=== PATIENT | male | born 1960 | race Caucasian/White ===

== ENCOUNTER 2018-05-29 08:38 | Inpatient (IN) ==
[2018-05-29] MEDS ORDERED: Chlorhexidine Gluconate 2% 1 Pack (2 Cloths) TOPICAL SCH (09:30)
[2018-05-29] MEDS ORDERED: Metoprolol Tartrate 25 MG Tablet PO SCH (09:30)
[2018-05-29] MEDS ORDERED: Chlorhexidine 4% Topical 120 APPLIC/120 ML Bottle TOPICAL SCH (09:45)
[2018-05-29] MEDS ORDERED: Sodium Chlor 0.9% Inj 40 ML, Bupivacaine Liposo PF 1.3% Inj 20 ML P-ARTICULR SCH ×2 (10:00)
[2018-05-29] MEDS ORDERED: SODIUM CHLOR 0.9% IV.SIG SCH (10:00)
[2018-05-29] MEDS ORDERED: TRANEXAMIC ACID IV.SIG SCH (10:00)
[2018-05-29] MEDS ORDERED: Sodium Chlor 0.9% Inj 500 ML IV.SIG SCH (10:00)
[2018-05-29] MEDS ORDERED: Vancomycin Inj 1,000 MG in Sodium Chlor 0.9% Inj 250 ML IV.SIG SCH (10:00)
[2018-05-29] MEDS ORDERED: Thrombin Topical 20,000 UNIT Spray Kit TOPICAL ONE (10:25)
[2018-05-29] MEDS ORDERED: Gelatin Size 100 Topical Foam ONE (10:26)
[2018-05-29] MEDS ORDERED: fentaNYL Citrate Inj 250 MCG/5 ML Ampul ONE (10:41)
[2018-05-29] MEDS ORDERED: Lidocaine PF 1% Inj 5 ML Syringe INFILTRATN ONE (12:00)
[2018-05-29] MEDS ORDERED: Bupivacaine/Epinephrine Inj 0.25% 50 ML Vial ONE (12:41)
[2018-05-29] MEDS ORDERED: Post-op Orders (for Pharmacy) OTHER STA (14:03)
[2018-05-29] MEDS ORDERED: oxyCODONE/Acetaminophen 10/325 Tablet PO PRN (14:03)
[2018-05-29] MEDS ORDERED: Naloxone Inj 0.4 MG/ML Vial IV.PUSH PRN (14:03)
[2018-05-29] MEDS ORDERED: Bisacodyl 10 MG Supp RECTAL PRN (14:03)
--- NOTE | 2018-05-29 14:26 | P.OP ---
- Preoperative Diagnosis (1) Metallosis Preoperative Diagnosis: Malfunctioning right total hip replacement arthroplasty. Status post [id number] total hip replacement. Postoperative Diagnosis: Same Date of procedure: 05/29/18 Procedure: Revision right total hip replacement Anesthesia: ARPAN Surgeon: Jethro Kam MD Hog Driver: RISHI David Operation and Findings: EBL: 200 cc cc INDICATION: This patient is a 57-year-old male who in 2007 came to the fibular strut grafting of his left hip for avascular necrosis. He came to metal on metal total hip replacement of the right hip [place] in 2008. Over period of 6-12 months the patient has noted symptoms regarding his right hip. He treated with 1 of my partners. Investigative studies show concerns for cobalt-chromium elevated markers. 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 He has consented for revision right total hip replacement. NOTE: Rachel David PA-C was present for the entire surgical procedure as my first line production supervisor. In my medical opinion her skill and care was necessary for the proper management of this patient. COMPONENTS: COMPANY: [employer] CUP: BHR, 54 mm outside diameter, 48 mm inside diameter. STEM: Anthology size 10, standard offset, 12/14 taper HEAD: 28 mm, -3, Oxinium ALTRX: Dual mobility, 28 mm head size with 48 mm outside diameter. PROCEDURE: This patient was brought to the operating room and anesthetized in the supine position and positioned on the routine table in the clean air suite. The patient was then rolled to a right side up lateral position and held with a Biomet hip positioner. The hip and leg was scrubbed with alcohol followed by Hibiclens followed by chloro prep and draped sterilely. A timeout was done and antibiotics were given within a routine time window. The previous incision was utilized. The previous incision was excised. The iliotibial band was opened in line with the incision. This was scarred down significantly and this was lifted and elevated. The sciatic nerve was palpated to be deep and away from surgical dissection and away from the retractor. The Charnley retractor was positioned. There was a large fluid-filled area that started in the posterior aspect of the hip and extended around the greater trochanter. This cyst/pseudocapsule was surgically dissected free from the surrounding tissues. The fluid was sent for culture and a tissue culture was sent for a culture. All of the cyst was removed. We entered into the hip joint. We found fibrinous debris and dark staining material of the lining of the pseudocapsule and capsule. This was all excised. The hip was dislocated posteriorly. The inside diameter of the acetabulum was 48 mm. The head was removed from the femoral stem. The stem was inspected. There was a minimal amount of dark debris at the junction between the head liner and the top of the stem. There was minimal wearing of the stem trunnion. We checked carefully and stressed the stem in multiple ways and could not see any evidence of loosening of the femoral stem. Position was approximately 15-20 of anteversion. The stem was felt to be very satisfactory. The entire capsule was excised. The stem was positioned anterior to the cup and the trunnion was protected. Exposure was excellent. The capsule and pseudocapsule around the acetabular component was excised. The cup was inspected. I could not see any significant wear indicating that it was not suitable for revision. The cup position appear to be very satisfactory and about approximately 10-15 of forward flexion and 40-45 of abduction. We did a trial with a dual mobility plastic liner and a 28 mm -3 head. It appeared that the leg length was similar to what it was preoperatively with exception of a few millimeters longer. No shorter construct was possible. The patient was stable at 90 flexion to 65 of internal rotation. With full external rotation in extension and could not be subluxed anteriorly. We again checked carefully. All metallic debris material have been excised. The final Oxinium head was placed inside the dual mobility plastic. The construct was impacted and was very secure. The hip was reduced. Stability was as previously noted. The posterior capsule and external rotators were repaired through bone with interrupted #2 Tycron sutures. The piriformis muscle was repaired with the same. The iliotibial band with interrupted #1 Vicryl sutures. Subcutaneous tissue was approximated with 2-0 Vicryl suture and skin with running intradermal 3-0 Vicryl followed by Steri-Strips and benzoin. A sterile dressing was applied.. The sponge count needle counts and instrument counts were all correct. The patient was awakened and taken to the recovery room in satisfactory condition FINDINGS: There was a large fluid-filled pseudocapsule and cyst which was stained dark along the edges and filled with dark colored fluid. This is all excised. Cultures were sent. This had the appearance of metal debris within a large fluid-filled pseudocapsule
--- NOTE | 2018-05-29 14:31 | P.DCO ---
- Physical Therapy Physical Therapy: Gait training, Other (3 times per week for 2 weeks) Hip: Total hip, Protocol: Right, Posterior hip precautions, Abduction pillow while in bed - Nursing RN: 3 days/week x 2 weeks Nursing: Other - Certification Need for Home Health services: I have seen patient Lawrence Georges on 05/29/18. My clinical findings support the need for the requested home health care services because: Need for Home Health Services: Limited ability to care for self, High risk of falls Homebound Certification: I certify that my clinical findings support that this patient is homebound because: Homebound Certification: Post-op weakness
[2018-05-29] MEDS ORDERED: *Meperidine Inj 25 MG/ML Vial PERIprocedural Use ONLY ONE (14:34)
[2018-05-29] MEDS ORDERED: *morphine SULFATE 10 MG/ML PERIprocedure ONLY ONE ×2 (14:38→14:46)
[2018-05-29] MEDS ORDERED: HYDROmorphone PF Inj 2 MG/ML Vial ONE (14:54)
--- NOTE | 2018-05-29 15:16 | XR ---
EXAM DATE: 05/29/2018 3:08 PM EDT AGE/SEX: 57 years / Male INDICATIONS: Post op right hip surgery. CLINICAL DATA: This is the patient's initial encounter. Patient reports that signs and symptoms have been present for 1 day and indicates a pain score of 10/10. MEDICAL/SURGICAL HISTORY: None. None. COMPARISON: POI, MR HIP W/O CONTRAST, RIGHT, 03/23/2018. . FINDINGS: Right hip arthroplasty. Degenerative changes at L4-5 and L5-S1. Mild narrowing of the left hip. No fr acture or dislocation. CONCLUSION: Postop right hip arthroplasty. Electronically signed by: Vimal Hunter MD 05/29/2018 3:15 PM EDT
[2018-05-29] MEDS ORDERED: oxyCODONE HCL 80 MG Controlled Release Tablet PO ONE (15:21)
[2018-05-29] MEDS: oxyCODONE/Acetaminophen 10/325 Tablet PO PRN ×2 (15:32→21:31)
[2018-05-29] MEDS: Baclofen 10 MG Tablet PO SCH (18:30)
[2018-05-29] MEDS: Gabapentin 400 MG Capsule PO SCH (18:31)
[2018-05-29] MEDS: oxyCODONE HCL 80 MG Controlled Release Tablet PO SCH (18:31)
[2018-05-29] MEDS: Morphine Inj 4 MG/ML Vial IV.PUSH PRN (19:56)
[2018-05-29] MEDS: ALPRAZolam 0.5 MG Tablet PO PRN (19:58)
[2018-05-29] MEDS: Senna/Docusate Sodium 8.6/50 MG Tablet PO SCH (21:32)
[2018-05-29] MEDS: Multivitamin/Minerals Therapeutic Tablet PO SCH (21:32)
[2018-05-29] MEDS: Temazepam 15 MG Capsule PO PRN (21:41)
[2018-05-30] MEDS: Morphine Inj 4 MG/ML Vial IV.PUSH PRN ×4 (00:17→11:15)
[2018-05-30] MEDS: oxyCODONE/Acetaminophen 10/325 Tablet PO PRN ×4 (04:01→19:49)
[2018-05-30 04:30] LABS: Hematocrit 28.9 % (39.0-51.0)
[2018-05-30] MEDS: oxyCODONE HCL 80 MG Controlled Release Tablet PO SCH ×3 (08:00→18:11)
[2018-05-30] MEDS: ALPRAZolam 0.5 MG Tablet PO PRN ×2 (08:01→20:58)
[2018-05-30] MEDS: Gabapentin 400 MG Capsule PO SCH ×3 (08:01→18:11)
[2018-05-30] MEDS: Senna/Docusate Sodium 8.6/50 MG Tablet PO SCH ×2 (08:02→20:58)
[2018-05-30] MEDS: Multivitamin/Minerals Therapeutic Tablet PO SCH ×2 (08:02→20:58)
[2018-05-30] MEDS: Baclofen 10 MG Tablet PO SCH ×3 (08:02→18:11)
--- NOTE | 2018-05-30 20:48 | P.PNOP ---
Subjective Interval history: Patient seen at 1245pm today. States he has severe right hip pain, 'the worst he has ever experienced'. It has improved since the immediate postop period in PACU but is still 'pretty bad'. He denies any radiating leg pain. He is taking his oxycontin which he was taking multiple times a day prior to surgery. He is also taking oxycodone and morphine. He denies any new chest pain or shortness of breath. Physical Exam Vital signs: Vital Signs 05/30/18 00:00 05/30/18 04:00 05/30/18 04:19 Temperature 98.3 F 97.0 F L Pulse Rate 86 83 Respiratory Rate 18 16 16 Blood Pressure 114/57 L 107/55 L Pulse Oximetry 99 100 05/30/18 08:00 05/30/18 09:44 05/30/18 12:00 Temperature 98.2 F 98.1 F Pulse Rate 81 86 Respiratory Rate 16 16 Blood Pressure 117/61 127/57 L Pulse Oximetry 99 96 99 05/30/18 16:00 05/30/18 16:14 Temperature 98.7 F Pulse Rate 91 H Respiratory Rate 16 16 Blood Pressure 140/71 Pulse Oximetry 98 Intake & Output 05/30/18 05/30/18 05/31/18 06:59 18:59 06:59 Intake Total 1660 / 1660 1960 / 1960 Output Total 500 / 500 450 / 450 Balance 1160 / 1160 1510 / 1510 Weight 65 kg Intake: IV 1300 / 1300 1000 / 1000 LR 1000 mL Inj 1,000 ML @ 80 1000 / 1000 1000 / 1000 mls/hr IV.CONT .[id number] JOSH Rx# :[id number] Ancef Inj 1,000 MG In NS Inj 300 / 300 100 ML @ 200 mls/hr IV.SIG Q6H JOSH Rx#:[id number] Oral 360 / 360 960 / 960 Output: Urine 350 / 350 450 / 450 Urine Amount (Catheter) 150 / 150 Indwelling Urethral Catheter 150 / 150 Other: Date of Last Bowel Movement 05/29/18 05/29/18 Narrative: Sitting up in bed Anxious AAOx3 RLE Hip dressing c/d/i, only mild swelling and warmth, no hematoma, no erythema +motor at distal, +sens, +nvi Neg homans - Constitutional mild distress - Urinary Catheter Management Indwelling Urethral Catheter Cath placed during this visit: yes Reason for continuing: Hourly intake/output Insertion date: 05/29/18 URE Cath placed during this visit: no Reason for continuing: Acute urinary retention Results - Labs CBC & Chem 7: 05/30/18 04:10 Laboratory Results - last 24 hr 05/30/18 04:10 Hgb 10.0 L Hct 28.9 L Microbiology 05/29/18 13:00 Tissue - Hip Fungal Smear - Final No fungal elements seen 05/29/18 13:00 Other Fungal Smear - Final No fungal elements seen 05/29/18 13:00 Tissue - Hip Acid Fast Bacilli Smear - Final No acid fast bacilli seen 05/29/18 13:00 Other Acid Fast Bacilli Smear - Final No acid fast bacilli seen 05/29/18 13:00 Tissue - Hip Gram Stain - Final 05/29/18 13:00 Tissue - Hip Wound Culture - Preliminary No growth in 24 hours 05/29/18 13:00 Wound - Hip Gram Stain - Final 05/29/18 13:00 Wound - Hip Wound Culture - Preliminary No growth in 24 hours - Procedures Revisional right total hip arthroplasty, posterior approach Assessment and Plan - Ortho Post Op Day # 1 - Assessment and Plan pod#1 s/p Rev R ALEXIS, posterior approach He is struggling greatly with pain despite having a normal exam today for pod# 1. He has a long, chronic history of prescribed narcotic use. PT stated he was able to walk down the soto 50-60 ft successfully. PO pain meds - oxycontin, oxycodone, morphine. He requests IV pain control. I explained we want to avoid overmedication. Hold dressing changes unless saturated. PT - WBAT RLE, posterior precautions. Ice right hip bid. D/C planning[facility]. DME written.
[2018-05-30] MEDS: Temazepam 15 MG Capsule PO PRN (20:58)
[2018-05-31] MEDS: oxyCODONE/Acetaminophen 10/325 Tablet PO PRN ×2 (01:47→06:28)
[2018-05-31] MEDS: Morphine Inj 4 MG/ML Vial IV.PUSH PRN (03:21)
[2018-05-31 06:05] LABS: Hematocrit 24.9 % (39.0-51.0); Hemoglobin 8.4 gm/dL (13.0-17.0)
[2018-05-31] MEDS: oxyCODONE HCL 80 MG Controlled Release Tablet PO SCH (08:28)
[2018-05-31] MEDS: ALPRAZolam 0.5 MG Tablet PO PRN (08:28)
[2018-05-31] MEDS: Gabapentin 400 MG Capsule PO SCH (08:28)
[2018-05-31] MEDS: Baclofen 10 MG Tablet PO SCH (08:28)
[2018-05-31] MEDS: Senna/Docusate Sodium 8.6/50 MG Tablet PO SCH (08:29)
[2018-05-31] MEDS: Multivitamin/Minerals Therapeutic Tablet PO SCH (08:29)
--- NOTE | 2018-05-31 11:50 | P.PNOP ---
Subjective Interval history: Doing better today. He still has prominent right hip pain but it is better controlled. No new complaints. Ready to go home today. Physical Exam Vital signs: Vital Signs 05/30/18 12:00 05/30/18 16:00 05/30/18 16:14 Temperature 98.1 F 98.7 F Pulse Rate 86 91 H Respiratory Rate 16 16 16 Blood Pressure 127/57 L 140/71 Pulse Oximetry 99 98 05/30/18 20:00 05/30/18 20:52 05/31/18 00:00 Temperature 99.0 F 98.0 F Pulse Rate 80 76 Respiratory Rate 17 20 17 Blood Pressure 127/62 110/61 Pulse Oximetry 98 95 05/31/18 04:00 05/31/18 08:00 Temperature 97.7 F 98.5 F Pulse Rate 82 77 Respiratory Rate 16 14 Blood Pressure 120/67 121/58 L Pulse Oximetry 96 96 Intake & Output 05/30/18 05/31/18 05/31/18 18:59 06:59 18:59 Intake Total 1960 / 1960 500 / 500 Output Total 450 / 450 425 / 425 Balance 1510 / 1510 -425 / -425 500 / 500 Weight 65 kg Intake: IV 1000 / 1000 500 / 500 LR 1000 mL Inj 1,000 ML @ 80 1000 / 1000 500 / 500 mls/hr IV.CONT .[id number] JOSH Rx# :[id number] Oral 960 / 960 Output: Urine 450 / 450 425 / 425 Other: # Voids 1 Date of Last Bowel Movement 05/29/18 05/29/18 05/31/18 Narrative: Sitting up in bed NAD AAOx3 RLE Hip dressing c/d/i, only mild swelling and warmth, no hematoma, no erythema +motor at distal, +sens, +nvi Neg homans - Constitutional no acute distress - Urinary Catheter Management Indwelling Urethral Catheter Cath placed during this visit: yes Reason for continuing: Hourly intake/output Insertion date: 05/29/18 URE Cath placed during this visit: no Reason for continuing: Acute urinary retention Results - Labs CBC & Chem 7: 05/31/18 04:44 Laboratory Results - last 24 hr 05/31/18 04:44 Hgb 8.4 L Hct 24.9 L Microbiology 05/29/18 13:00 Tissue - Hip Gram Stain - Final 05/29/18 13:00 Tissue - Hip Wound Culture - Preliminary No growth in 48 hours 05/29/18 13:00 Wound - Hip Gram Stain - Final 05/29/18 13:00 Wound - Hip Wound Culture - Preliminary No growth in 48 hours 05/29/18 13:00 Tissue - Hip Fungal Smear - Final No fungal elements seen 05/29/18 13:00 Other Fungal Smear - Final No fungal elements seen 05/29/18 13:00 Tissue - Hip Acid Fast Bacilli Smear - Final No acid fast bacilli seen 05/29/18 13:00 Other Acid Fast Bacilli Smear - Final No acid fast bacilli seen - Procedures Revisional right total hip arthroplasty, posterior approach Assessment and Plan - Assessment and Plan pod#2 s/p Rev R ALEXIS, posterior approach His pain is better controlled today. Ok to d/c home w [facility] after PT today. PO pain meds per his pain management physician. Hold dressing changes unless saturated. PT - WBAT RLE, posterior precautions. Ice right hip bid. D/C planning, home w [facility] after PT today . F/U in 2 weeks as scheduled. DME written.
== END 2018-05-31 10:27 | disposition home health service (06) ==
LOC: HSDI 08:38 → N06 16:36
PROVIDERS: ADMIT Orthopaedic Surgery Orthopaedic Surgery of the Spine; ATTEND Orthopaedic Surgery Orthopaedic Surgery of the Spine

== ENCOUNTER 2018-06-22 12:30 | Inpatient (IN) ==
[2018-06-22] MEDS ORDERED: Post-op Orders (for Pharmacy) OTHER STA (17:08)
--- NOTE | 2018-06-22 19:48 | P.HPOP ---
History of Present Illness Service: This patient is a 57-year-old white male with a history of previous metal-on- metal [place]. The patient was developing symptoms around his right hip. A workup showed evidence of a significant fluid collection in elevation of cobalt and chromium. Approximately 4 weeks ago he had revision of his right hip system to a dual geometry system. The patient was doing well having decreasing pain. Last night he leaned to the left side bent over while he was in a seated position and turned his leg in a way that he developed a dislocation of his right hip. He was seen at [facility] in [place]. He had reduction of the hip but x-ray showed that there was a malreduction and dislodgment of 1 of the components of the hip system. He was transferred to [facility] today. He is being admitted to my service for further evaluation and treatment Primary Care Physician: Juan Carlos Day - Diagnosis (1) Metallosis Inpatient Certification: I certify that the inpatient services were ordered in accordance with Medicare regulations governing the order. This includes certification that hospital inpatient services are reasonable and necessary and in the case of services not specified as inpatient-only under 42 CFR 419.22(n), that they are appropriately provided as inpatient services in accordance to with the 2-midnight benchmark under 43 CFR 412.3(e) Estimated Total Length of Stay (Days): 5 Plans for Post Hospital Care: Home health Review of Systems Constitutional: Reports body ache(s) Eyes: Denies blind spots, Denies blurry vision Ears, Nose, Mouth, and Throat: Denies difficulty swallowing Cardiovascular: Denies chest pain Respiratory: Denies chest congestion Gastrointestinal: Denies abdominal pain Musculoskeletal: Reports joint pain PMFSH - History History Provided By: Patient - Medical History Medical History: Medical History (Last Reviewed 05/30/18 @ 09:35 by Erika Trunog) Anxiety Avascular necrosis of bones of both hips Chronic pain Hx of benign neoplasm Metallosis Presence of orthopedic joint implant Spinal stenosis - Surgical History Surgical History: Surgical History (Last Reviewed 06/07/18 @ 12:11 by Paz Pino) H/O arthroscopic knee surgery History of hip surgery History of total right hip arthroplasty Hx of colonoscopy S/P aspiration of joint - Tobacco History Second Hand Smoke Exposure: Yes Smoking Status: Former smoker Tobacco Type: Cigarettes - Alcohol History How Often Do You Have a Drink Containing Alcohol: Never - Substance Use History Substance History: No History of Abuse Medications and Allergies Active Medications: Active Medications Hydrocodone Bitart/Acetaminophen ([place] 7.5/325) 1 tab PO Q3H PRN PRN Reason: Pain Scale 3-10 Last Admin: 06/22/18 17:52 Dose: 1 tab Diphenhydramine HCl (Benadryl) 25 mg PO Q6H PRN PRN Reason: ITCHING Ondansetron HCl (Zofran Odt) 4 mg PO Q6H PRN PRN Reason: NAUSEA OR VOMITING Senna/Docusate Sodium (Lisbeth-Colace) 1 tab PO BID JOSH Sodium Chloride (Ns Flush) 2 ml IV.FLUSH BID JOSH Sodium Chloride (Ns Flush) 2 ml IV.FLUSH PRN PRN PRN Reason: FLUSH AFTER USING IV ACCESS Zolpidem Tartrate (Ambien) 5 mg PO HS PRN PRN Reason: INSOMNIA Allergies Allergy/AdvReac Type Severity Reaction Status Date / Time No Known Allergies Allergy Verified 05/29/18 09:22 Home Medications Medication Instructions Recorded Confirmed Type alprazolam 0.5 mg PO BID PRN 05/28/18 06/22/18 History amitriptyline 50 mg PO HS 05/28/18 06/22/18 History baclofen 10 mg PO TID 05/28/18 06/22/18 History gabapentin 800 mg PO TID 05/28/18 06/22/18 History oxycodone 15 mg PO Q4-6H PRN 05/28/18 06/22/18 History oxycodone [OxyContin] 80 mg PO TID 05/28/18 06/22/18 History promethazine 25 mg PO Q6H PRN 05/28/18 06/22/18 History tamsulosin 0.8 mg PO HS 05/29/18 06/22/18 History finasteride 5 mg PO HS 06/22/18 06/22/18 History temazepam 15 mg PO HS 06/22/18 06/22/18 History Exam Vital signs: Vital Signs 06/22/18 15:15 Temperature 98.2 F Pulse Rate 68 Respiratory Rate 16 Blood Pressure 143/66 H Pulse Oximetry 95 Narrative: HEENT: Normocephalic atraumatic pupils equal round reactive. NECK: Supple. No abnormal masses. Full range of motion. CHEST: Clear to auscultation with no rales or rhonchi's or wheezes. HEART: Regular rate and rhythm. No murmurs. ABDOMEN: Soft, nontender, no masses. Normal active bowel sounds. GENITOURINARY: Deferred MUSCULOSKELETAL: Right hip well-healed posterior incision. Mild swelling. Leg lengths almost equal. Motor examination is normal. Dorsalis pedis 2+. Extensor hallucis longus 5/5. Results - Diagnostic results Imaging: Review of outside x-rays and review of the radiologist interpretation shows evidence of a dislocated total hip replacement. Postreduction showed evidence of asymmetric narrowing of the acetabular component consistent with mismatch of head size and acetabular size. A lucency in the soft tissue suspicious for a dislodged polyethylene component Caprini VTE Risk Assessment Caprini VTE Risk Assessment: Moderate/High Risk (score >= 2) Caprini Risk Assessment Model: Point Value = 1 Point Value = 2 Point Value = 3 Point Value = 5 Age 41-60 Minor surgery BMI > 25 kg/m2 Swollen legs Varicose veins or History of unexplained or recurrent spontaneous Oral contraceptives or hormone replacement Sepsis (< 1 month) Serious lung disease, including pneumonia (< 1 month) Abnormal pulmonary function Acute myocardial infarction Congestive heart failure (< 1 month) History of inflammatory bowel disease Medical patient at bed rest Age 61-74 Arthroscopic surgery Major open surgery (> 45 min) Laparoscopic surgery (> 45 min) Malignancy Confined to bed (> 72 hours) Immobilizing plaster cast Central venous access Age >= 75 History of VTE Family history of VTE Factor V Leiden Prothrombin [id number] Lupus anticoagulant Anticardiolipin antibodies Elevated serum homocysteine Heparin-induced thrombocytopenia Other congenital or acquired thrombophilia Stroke (< 1 month) Elective arthroplasty Hip, pelvis, or leg fracture Acute spinal cord injury (< 1 month) Prophylaxis Regimen: Total Risk Factor Score Risk Level Prophylaxis Regimen 0-1 Low Early ambulation 2 Moderate Order ONE of the following: *Sequential Compression Device (SCD) *Heparin 5000 units SQ BID 3-4 Higher Order ONE of the following medications: *Heparin 5000 units SQ TID *Enoxaparin/Lovenox 40 mg SQ daily (WT < 150 kg, CrCl > 30 mL/min) *Enoxaparin/Lovenox 30 mg SQ daily (WT < 150 kg, CrCl > 10-29 mL/min) *Enoxaparin/Lovenox 30 mg SQ BID (WT < 150 kg, CrCl > 30 mL/min) AND/OR *Sequential Compression Device (SCD) 5 or more Highest Order ONE of the following medications: *Heparin 5000 units SQ TID (Preferred with Epidurals) *Enoxaparin/Lovenox 40 mg SQ daily (WT < 150 kg, CrCl > 30 mL/min) *Enoxaparin/Lovenox 30 mg SQ daily (WT < 150 kg, CrCl > 10-29 mL/min) *Enoxaparin/Lovenox 30 mg SQ BID (WT < 150 kg, CrCl > 30 mL/min) AND *Sequential Compression Device (SCD) Assessment and Plan - Problem List (1) Metallosis Code(s): T56.91XA - Toxic effect of unspecified metal, accidental (unintentional ), initial encounter Status: Acute - Assessment and Plan Status post revision right total hip replacement. Status post dislocation right total hip replacement. Dislodgment right acetabular dual geometry liner. PLAN: This patient will require surgical treatment. I recommend that components be [place] from [place] of [place] to enable us to revisit his right hip. I anticipate posterior exposure with removal of the femoral head and dual geometry liner. We will inspect the acetabular component. It is possible he will need a full revision. Alternatively, consider revision with new dual geometry acetabular component, revision with longer neck length using a ceramic head. CONSENT: There are risks with this condition and surgery including infection, bleeding, loss of motion, need for further surgery, neurologic or vascular injury, dislocation, failure of bone, failure of hardware, need for further revision surgery. He appears to understand these issues and wishes to proceed forward with surgery as outlined above. We have spoken to the port purser. They anticipate that the components will be here by some time on Monday. We will anticipate surgical treatment when the components necessary for revision of the system are available
[2018-06-22] MEDS: oxyCODONE HCL 40 MG Controlled Release Tablet PO SCH (20:32)
[2018-06-22] MEDS: Finasteride 5 MG Tablet PO SCH (20:33)
[2018-06-22] MEDS: Senna/Docusate Sodium 8.6/50 MG Tablet PO SCH (20:33)
[2018-06-22] MEDS ORDERED: Temazepam 15 MG Capsule PO PRN (21:00)
[2018-06-22] MEDS: Gabapentin 400 MG Capsule PO SCH (21:12)
[2018-06-22] MEDS: Baclofen 10 MG Tablet PO SCH (21:13)
[2018-06-22 22:09] LABS: Baso # (Auto) 0.1 th/mm3 (0.0-0.2); Eos # (Auto) 0.4 th/mm3 (0.0-0.4); Eos % (Auto) 7.5 % (0.0-4.0); Hematocrit 30.7 % (39.0-51.0); Hemoglobin 10.1 gm/dL (13.0-17.0); Lymph # (Auto) 1.4 th/mm3 (1.0-4.8); Lymph % (Auto) 24.8 % (9.0-44.0); Mean Corpuscular HGB Conc 32.9 % (32.0-36.0); Mean Corpuscular Hemoglobin 31.3 pg (27.0-34.0); Mean Corpuscular Volume 95.1 fL (80.0-100.0); Mean Platelet Volume 8.2 fL (7.0-11.0); Mono # (Auto) 0.7 th/mm3 (0.0-0.9); Mono % (Auto) 12.8 % (0.0-8.0); Neut # (Auto) 3.1 th/mm3 (1.8-7.7); Neut % (Auto) 53.9 % (16.0-70.0); Platelet Count 197 th/mm3 (150-450); Red Blood Count 3.22 mil/mm3 (4.50-5.90); Red Cell Distribution Width 13.8 % (11.6-17.2); White Blood Count 5.8 th/mm3 (4.0-11.0)
[2018-06-22 22:59] LABS: Erythrocyte Sedimentation Rate 31 mm/hr (0-20)
[2018-06-23 06:08] LABS: Bilirubin,Urine Negative (Negative); Clarity,Urine Clear (Clear); Color,Urine Yellow (Yellw/Straw); Glucose,Urine (UA) Negative (Negative); Leukocyte Esterase,Urine Negative (Negative); Mucus,Urine Few /lpf (Occasional); Nitrite,Urine Negative (Negative); Specific Gravity,Urine 1.009 (1.002-1.035)
--- NOTE | 2018-06-23 07:39 | P.PNOP ---
Subjective Interval history: pt doing well, no voiced complaints his condition and operative management was discussed in detail to patient, awaiting components to have surgery early next week, most likely Monday Physical Exam Vital signs: Vital Signs 06/22/18 15:15 06/22/18 20:00 06/23/18 00:00 Temperature 98.2 F 99.1 F 98.5 F Pulse Rate 68 65 70 Respiratory Rate 16 18 18 Blood Pressure 143/66 H 135/66 118/55 L Pulse Oximetry 95 95 96 06/23/18 04:00 Temperature 97.9 F Pulse Rate 66 Respiratory Rate 18 Blood Pressure 140/72 Pulse Oximetry 95 Intake & Output 06/22/18 06/23/18 06/23/18 18:59 06:59 18:59 Intake Total 466 / 466 Output Total 1300 / 1300 Balance -834 / -834 Weight 65.771 kg Intake: Oral 466 / 466 Output: Urine 1300 / 1300 Other: Date of Last Bowel Movement 06/21/18 Weight On Admission 65.771 kg Narrative: also seen and examined by Dr. Mj Kam right leg in traction +NVI Results - Labs CBC & Chem 7: 06/22/18 22:00 Laboratory Results - last 24 hr 06/22/18 06/22/18 06/22/18 22:00 22:00 22:00 WBC 5.8 RBC 3.22 L Hgb 10.1 L Hct 30.7 L MCV 95.1 MCH 31.3 MCHC 32.9 RDW 13.8 Plt Count 197 MPV 8.2 Neut % (Auto) 53.9 Lymph % (Auto) 24.8 Gillespie % (Auto) 12.8 H Eos % (Auto) 7.5 H Baso % (Auto) 1.0 Neut # (Auto) 3.1 Lymph # (Auto) 1.4 Gillespie # (Auto) 0.7 Eos # (Auto) 0.4 Baso # (Auto) 0.1 WBC Differential . Differential Comment Auto diff final ESR 31 H APTT 29.4 C-Reactive Protein 2.80 H Urine Color Urine Clarity Urine pH Ur Specific Narrows Urine Protein Urine Glucose (UA) Urine Ketones Urine Occult Blood Urine Nitrate Urine Bilirubin Urine Urobilinogen Ur Leukocyte Esterase Urine WBC Urine Mucus Micro UA Comment Ur Microscopic Review Urine Culture Comments 06/23/18 05:15 WBC RBC Hgb Hct MCV MCH MCHC RDW Plt Count MPV Neut % (Auto) Lymph % (Auto) Gillespie % (Auto) Eos % (Auto) Baso % (Auto) Neut # (Auto) Lymph # (Auto) Gillespie # (Auto) Eos # (Auto) Baso # (Auto) WBC Differential Differential Comment ESR APTT C-Reactive Protein Urine Color Yellow Urine Clarity Clear Urine pH 6.0 Ur Specific [place] 1.009 Urine Protein Negative Urine Glucose (UA) Negative Urine Ketones Negative Urine Occult Blood Negative Urine Nitrate Negative Urine Bilirubin Negative Urine Urobilinogen Less than 2 Ur Leukocyte Esterase Negative Urine WBC 1 Urine Mucus Few H Micro UA Comment Culture not ind Ur Microscopic Review Not Reportable Urine Culture Comments Culture not ind Assessment and Plan - Problem List (1) Metallosis Code(s): T56.91XA - Toxic effect of unspecified metal, accidental (unintentional ), initial encounter Status: Acute - Assessment and Plan Status post revision right total hip replacement. Status post dislocation right total hip replacement. Dislodgment right acetabular dual geometry liner. PLAN: This patient will require surgical treatment by Dr. Jethro Kam. [place] us to revisit his right hip with posterior exposure with removal of the femoral head and dual geometry liner. We will inspect the acetabular component. It is possible he will need a full revision. Alternatively, consider revision with new dual geometry acetabular component, revision with longer neck length using a ceramic head.
[2018-06-23] MEDS: Baclofen 10 MG Tablet PO SCH ×3 (09:22→18:18)
[2018-06-23] MEDS: Gabapentin 400 MG Capsule PO SCH ×3 (09:22→18:18)
[2018-06-23] MEDS: oxyCODONE HCL 40 MG Controlled Release Tablet PO SCH ×3 (09:22→18:17)
[2018-06-23] MEDS: Senna/Docusate Sodium 8.6/50 MG Tablet PO SCH ×2 (09:23→20:39)
[2018-06-23] MEDS: ALPRAZolam 0.5 MG Tablet PO PRN ×2 (09:26→19:14)
[2018-06-23] MEDS: Zolpidem Tartrate 5 MG Tablet PO PRN (20:38)
[2018-06-23] MEDS: Finasteride 5 MG Tablet PO SCH (20:39)
--- NOTE | 2018-06-24 08:38 | P.PNOP ---
Subjective Interval history: pt wants to discuss the timing of his home medications no other complaints Dr. Morelos's team will be back tomorrow to further discuss with patient the timing of his surgery depending on when components arrive Physical Exam Vital signs: Vital Signs 06/23/18 11:26 06/23/18 12:00 06/23/18 13:55 Temperature 97.7 F Pulse Rate 78 Respiratory Rate 18 16 18 Blood Pressure 135/65 Pulse Oximetry 95 06/23/18 16:00 06/23/18 19:22 06/23/18 22:01 Temperature 98.4 F 97.9 F Pulse Rate 65 70 Respiratory Rate 16 18 18 Blood Pressure 130/63 137/62 Pulse Oximetry 93 L 96 06/23/18 23:36 06/24/18 01:45 06/24/18 03:47 Temperature 98.2 F 98.0 F Pulse Rate 65 69 Respiratory Rate 17 18 17 Blood Pressure 112/56 L 118/59 L Pulse Oximetry 98 97 Intake & Output 06/23/18 06/24/18 06/24/18 18:59 06:59 18:59 Intake Total 360 / 360 Output Total 600 / 600 Balance -240 / -240 Weight 65.7 kg Intake: Oral 360 / 360 Output: Urine 600 / 600 Other: Date of Last Bowel Movement 06/21/18 06/21/18 # Bowel Movements 0 Narrative: also seen and examined by Dr. Mj Kam right leg in traction +NVI Results - Labs CBC & Chem 7: 06/22/18 22:00 Assessment and Plan - Problem List (1) Metallosis Code(s): T56.91XA - Toxic effect of unspecified metal, accidental (unintentional ), initial encounter Status: Acute - Assessment and Plan Status post revision right total hip replacement. Status post dislocation right total hip replacement. Dislodgment right acetabular dual geometry liner. PLAN: Nursing staff will discuss with pharmacy about the timing of his TID home meds, right now he states that he is receiving them too close together and a few of his home meds are time release and current timing is causing problems This patient will require surgical treatment by Dr. Jethro Kam. Components [place] to enable us to revisit his right hip with posterior exposure with removal of the femoral head and dual geometry liner. We will inspect the acetabular component. It is possible he will need a full revision. Alternatively, consider revision with new dual geometry acetabular component, revision with longer neck length using a ceramic head.
[2018-06-24] MEDS: Baclofen 10 MG Tablet PO SCH ×3 (09:26→20:05)
[2018-06-24] MEDS: ALPRAZolam 0.5 MG Tablet PO PRN ×3 (09:26→20:05)
[2018-06-24] MEDS: oxyCODONE HCL 40 MG Controlled Release Tablet PO SCH ×3 (09:26→20:06)
[2018-06-24] MEDS: Senna/Docusate Sodium 8.6/50 MG Tablet PO SCH ×2 (09:26→20:05)
[2018-06-24] MEDS: Gabapentin 400 MG Capsule PO SCH ×3 (09:27→20:06)
--- NOTE | 2018-06-24 09:59 | P.CONURO ---
History of Present Illness Service: Consult date: 06/24/18 Requesting Physician: Mj Kam Reason for Consult: Genital candidiasis Primary Care Provider: Juan Carlos Day History of Present Illness: Consulted to evaluate this pleasant 57-year-old gentleman admitted to the orthopedic surgery service for a small rash involving the distal penis. Patient reports that he had a similar condition many years ago. He reports that he has some erythema involving the distal penis which actually has been improving. He denies any problems urinating. He denies dysuria or hematuria. Patient is not a diabetic. Review of Systems All other systems reviewed negative except as stated in HPI PMFSH - History History Provided By: Patient - Medical History Medical History: Medical History (Last Reviewed 05/30/18 @ 09:35 by Erika Truong) Anxiety Avascular necrosis of bones of both hips Chronic pain Hx of benign neoplasm Metallosis Presence of orthopedic joint implant Spinal stenosis - Surgical History Surgical History: Surgical History (Last Reviewed 06/07/18 @ 12:11 by Paz Pino) H/O arthroscopic knee surgery History of hip surgery History of total right hip arthroplasty Hx of colonoscopy S/P aspiration of joint - Tobacco History Second Hand Smoke Exposure: No Smoking Status: Never smoker Tobacco Type: Cigarettes - Alcohol History How Often Do You Have a Drink Containing Alcohol: Never - Substance Use History Substance History: No History of Abuse - Immunization History Tetanus Immunization: Unsure Hx Influenza Vaccine This Season: No Medications and Allergies Active Medications: Active Medications Alprazolam (Xanax) 0.5 mg PO BID PRN PRN Reason: Anxiety Last Admin: 06/24/18 09:26 Dose: 0.5 mg Amitriptyline HCl (Elavil) 50 mg PO HS [facility] Last Admin: 06/23/18 20:39 Dose: 50 mg Baclofen (Lioresal) 10 mg PO TID [facility] Last Admin: 06/24/18 09:26 Dose: 10 mg Diphenhydramine HCl (Benadryl) 25 mg PO Q6H PRN PRN Reason: ITCHING Finasteride (Proscar) 5 mg PO HS [facility] Last Admin: 06/23/18 20:39 Dose: 5 mg Gabapentin (Neurontin) 800 mg PO TID [facility] Last Admin: 06/24/18 09:27 Dose: 800 mg Miconazole Nitrate (Monistat 3 Vag Supp) 200 mg VAGINAL HS [facility] Stop: 06/26/18 21:01 Ondansetron HCl (Zofran Odt) 4 mg PO Q6H PRN PRN Reason: NAUSEA OR VOMITING Oxycodone HCl (Oxycontin Cr) 80 mg PO TID [facility] Last Admin: 06/24/18 09:26 Dose: 80 mg Oxycodone HCl (Roxicodone) 15 mg PO Q4H PRN PRN Reason: PAIN 1-10 Last Admin: 06/24/18 07:43 Dose: 15 mg Promethazine HCl (Phenergan) 25 mg PO Q6H PRN PRN Reason: Nausea Last Admin: 06/22/18 21:13 Dose: 25 mg Senna/Docusate Sodium (Lisbeth-Colace) 1 tab PO BID [facility] Last Admin: 06/24/18 09:26 Dose: 1 tab Sodium Chloride (Ns Flush) 2 ml IV.FLUSH BID [facility] Last Admin: 06/24/18 09:27 Dose: 2 ml Sodium Chloride (Ns Flush) 2 ml IV.FLUSH PRN PRN PRN Reason: FLUSH AFTER USING IV ACCESS Tamsulosin HCl (Flomax) 0.8 mg PO HS [facility] Last Admin: 06/23/18 20:38 Dose: 0.8 mg Temazepam (Restoril) 15 mg PO HS PRN PRN Reason: SLEEP Zolpidem Tartrate (Ambien) 5 mg PO HS PRN PRN Reason: INSOMNIA Last Admin: 06/23/18 20:38 Dose: 5 mg Allergies Allergy/AdvReac Type Severity Reaction Status Date / Time No Known Allergies Allergy Verified 05/29/18 09:22 Home Medications Medication Instructions Recorded Confirmed Type alprazolam 0.5 mg PO BID PRN 05/28/18 06/22/18 History amitriptyline 50 mg PO HS 05/28/18 06/22/18 History baclofen 10 mg PO TID 05/28/18 06/22/18 History gabapentin 800 mg PO TID 05/28/18 06/22/18 History oxycodone 15 mg PO Q4-6H PRN 05/28/18 06/22/18 History oxycodone [OxyContin] 80 mg PO TID 05/28/18 06/22/18 History promethazine 25 mg PO Q6H PRN 05/28/18 06/22/18 History tamsulosin 0.8 mg PO HS 05/29/18 06/22/18 History finasteride 5 mg PO HS 06/22/18 06/22/18 History temazepam 15 mg PO HS 06/22/18 06/22/18 History Physical Exam Vital Signs - 24 hr 06/23/18 11:26 06/23/18 12:00 06/23/18 13:55 Temperature 97.7 F Pulse Rate 78 Respiratory Rate 18 16 18 Blood Pressure 135/65 Pulse Oximetry 95 06/23/18 16:00 06/23/18 19:22 06/23/18 22:01 Temperature 98.4 F 97.9 F Pulse Rate 65 70 Respiratory Rate 16 18 18 Blood Pressure 130/63 137/62 Pulse Oximetry 93 L 96 06/23/18 23:36 06/24/18 01:45 06/24/18 03:47 Temperature 98.2 F 98.0 F Pulse Rate 65 69 Respiratory Rate 17 18 17 Blood Pressure 112/56 L 118/59 L Pulse Oximetry 98 97 06/24/18 08:00 06/24/18 08:13 Temperature 97.3 F L Pulse Rate 73 Respiratory Rate 18 18 Blood Pressure 143/88 H Pulse Oximetry 94 L Physical Exam: GENITOURINARY: Examination of the penis demonstrated very subtle erythema of the foreskin and tissue adjacent to the glans penis. Testes bilaterally descended, no evidence of hydrocele formation. Result Diagrams: 06/22/18 22:00 Assessment and Plan - Assessment (1) Genital candidiasis in male Code(s): B37.49 - Other urogenital candidiasis Status: Acute - Plan Urologic impression: Mild candidiasis of the distal penis and foreskin. Recommendations: 1. We will prescribe Lotrisone ointment to be applied twice daily for at least 5 days until rash subsides 2. Discussed potential benefit of having a circumcision in the future if symptoms recur 3. Will be available as needed during present hospitalization
[2018-06-24] MEDS: Finasteride 5 MG Tablet PO SCH (20:06)
[2018-06-24] MEDS: Zolpidem Tartrate 5 MG Tablet PO PRN (21:20)
[2018-06-25] MEDS: Baclofen 10 MG Tablet PO SCH ×3 (05:43→20:04)
[2018-06-25] MEDS: Gabapentin 400 MG Capsule PO SCH ×3 (05:43→20:04)
[2018-06-25] MEDS: oxyCODONE HCL 40 MG Controlled Release Tablet PO SCH ×3 (05:43→20:05)
[2018-06-25] MEDS: ALPRAZolam 0.5 MG Tablet PO PRN ×2 (08:34→18:04)
[2018-06-25] MEDS: Senna/Docusate Sodium 8.6/50 MG Tablet PO SCH ×2 (08:34→20:04)
[2018-06-25] MEDS: Finasteride 5 MG Tablet PO SCH (20:04)
[2018-06-25] MEDS: Zolpidem Tartrate 5 MG Tablet PO PRN (21:45)
[2018-06-25] MEDS ORDERED: Chlorhexidine Gluconate 2% 1 Pack (2 Cloths) TOPICAL ONE (23:19)
[2018-06-25] MEDS ORDERED: Sodium Chlor 0.9% Inj 500 ML IV.SIG SCH (23:45)
[2018-06-26] MEDS: Gabapentin 400 MG Capsule PO SCH ×3 (05:35→20:46)
[2018-06-26] MEDS: oxyCODONE HCL 40 MG Controlled Release Tablet PO SCH ×3 (05:35→20:45)
[2018-06-26] MEDS: Baclofen 10 MG Tablet PO SCH ×3 (05:35→20:47)
[2018-06-26] MEDS: ALPRAZolam 0.5 MG Tablet PO PRN ×2 (06:37→20:49)
[2018-06-26] MEDS: Senna/Docusate Sodium 8.6/50 MG Tablet PO SCH ×2 (09:54→20:36)
[2018-06-26] MEDS ORDERED: HYDROmorphone PF Inj 2 MG/ML Vial ONE ×3 (12:23→16:01)
[2018-06-26] MEDS ORDERED: Ketamine Inj 50 MG/5 ML Syringe IV.PUSH ONE (12:23)
[2018-06-26] MEDS ORDERED: Phenylephrine/NS 1000 MCG/10ML Syringe IV.PUSH ONE (12:30)
[2018-06-26] MEDS ORDERED: Glycopyrrolate Inj 1 MG/5 ML Syringe IV.PUSH ONE (12:30)
[2018-06-26] MEDS ORDERED: Neostigmine Inj 5 MG/5 ML Syringe IV.PUSH ONE (12:30)
[2018-06-26] MEDS ORDERED: Lidocaine PF 1% Inj 5 ML Syringe OTHER ONE (12:30)
[2018-06-26] MEDS ORDERED: Ketorolac Inj 30 MG/ML (IVP) Vial IV.PUSH ONE (12:30)
--- NOTE | 2018-06-26 12:36 | P.PNOP ---
Subjective Interval history: Doing well. Lying in bed. Uneventful weekend. Instrumentation arrived. Seen by urology and note appreciated Physical Exam Vital signs: Vital Signs 06/25/18 12:45 06/25/18 13:55 06/25/18 16:00 Temperature 97.9 F Pulse Rate 78 Respiratory Rate 18 18 18 Blood Pressure 144/67 H Pulse Oximetry 96 06/25/18 17:53 06/25/18 20:00 06/26/18 00:00 Temperature 97.2 F L 97.6 F Pulse Rate 76 73 Respiratory Rate 18 20 18 Blood Pressure 132/63 151/78 H Pulse Oximetry 95 95 06/26/18 04:00 06/26/18 08:00 06/26/18 10:33 Temperature 97.7 F 98 F Pulse Rate 65 65 Respiratory Rate 17 14 18 Blood Pressure 121/59 L 132/60 Pulse Oximetry 95 94 L Intake & Output 06/25/18 06/26/18 06/26/18 18:59 06:59 18:59 Intake Total 1680 / 1680 220 / 220 Output Total 1400 / 1400 Balance 1680 / 1680 -1180 / -1180 Weight 65.7 kg Intake: Oral 1680 / 1680 220 / 220 Output: Urine 1400 / 1400 Other: # Voids 5 Date of Last Bowel Movement 06/23/18 06/23/18 06/23/18 # Bowel Movements 0 Narrative: Incision clean. No redness or warmth. Mild swelling. No calf tenderness. Dorsalis pedis 2+. Motor examination appears normal Results - Labs CBC & Chem 7: 06/22/18 22:00 Laboratory Results - last 24 hr 06/26/18 05:23 Blood Type A Positive Antibody Screen Negative Assessment and Plan - Problem List (1) Metallosis Code(s): T56.91XA - Toxic effect of unspecified metal, accidental (unintentional ), initial encounter Status: Acute - Assessment and Plan Status post revision right total hip replacement. Status post dislocation right total hip replacement. Dislodgment right acetabular dual geometry liner. PLAN: Components available. Serologic markers shows mildly elevated C reactive protein and mildly elevated sed rate. Review of all previous cultures, negative. Possibility of infection of right total hip replacement, although likely this may be reaction to having had recent surgery without evidence of infection. SURGERY: Revision right total hip replacement, possible revision of femoral and or acetabular components, possible removal of components and placement of a temporary antibiotic spacer. CONSENT: I have explained to the patient the nature of his condition risks and benefits were identified. There are risks with surgery including infection, bleeding, loss of motion, continued pain, dislocation, need for further revision surgery, neurologic or vascular injury. If there is evidence of infection, removal of the components may be necessary. Alternatively if it is equivocal, I would likely revise the femoral head and acetabular component and watch cultures. We discussed his dislocation. I have explained to the patient that likely his reason for dislocation is related to significant weakening of his muscles. That weakening is likely related to 2 previous surgeries, inactivity from recent surgery and inflammatory trauma from metallosis, identified during his previous surgery. Component position appears to be satisfactory. At the time of his revision his hip was quite stable. At the time of this revision, consider lengthening the leg intentionally for purpose of decreasing incidence of dislocation, although this may lead to leg length inequality with right leg longer than left. Likely it is recommended that he have a modified axial orthosis after surgery for purpose of restricting motion of his right hip during the early postoperative period
[2018-06-26] MEDS ORDERED: Bupivacaine Liposomal PF 1.3% Inj 20 ML Vial ONE (14:01)
[2018-06-26] MEDS ORDERED: Bisacodyl 10 MG Supp RECTAL PRN (14:40)
[2018-06-26] MEDS ORDERED: Post-op Orders (for Pharmacy) OTHER STA (14:40)
[2018-06-26] MEDS ORDERED: Naloxone Inj 0.4 MG/ML Vial IV.PUSH PRN (14:40)
--- NOTE | 2018-06-26 15:07 | P.OP ---
- Preoperative Diagnosis (1) Metallosis Preoperative Diagnosis: Status post revision right total hip replacement with dual geometry acetabular insert, metal on metal acetabulum. Status post dislocation and dissociation right femoral head component. Possible infected total hip replacement Postoperative Diagnosis: Status post revision right total hip replacement, dual geometry acetabular component. Status post dislocation right total hip with dissociation acetabular component. No evidence of infection right total hip replacement Date of procedure: 06/26/18 Anesthesia: GETA Surgeon: Jethro Kam MD Blood Bank Supervisor: Staff Operation and Findings: EBL: 300 cc INDICATION: This patient is a 57-year-old male who originally had a metal-on- metal total hip replacement performed approximately 9 years ago. The patient had serologic markers of elevated cobalt-chromium. 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 He had a revision 4 weeks ago converting this to a dual geometry ceramic on plastic plastic or metal. The patient was clinically doing well when he had a dislocation while reaching over to his left, bending his hip and twisting his knee. He was seen at another hospital where a closed reduction was done in the emergency room. Postreduction x-ray showed evidence of dissociation of the plastic acetabular component from the femoral head. He presents now for revision arthroplasty. There are serologic markers of an elevated sedimentation rate and C-reactive protein. There is concern that this may represent an infection although clinically it looks benign. He presents for possible extraction of components and antibiotic spacer if there is evidence of infection. COMPONENTS: COMPANY: [employer] CUP: BHR 56 mm outside diameter, 48 mm inside diameter metal LINER: Dual geometry 48 mm outside diameter, 28 mm inside diameter HEAD: 28 mm, +4, 09/14, ceramic PROCEDURE: This patient was brought to the operating room and anesthetized in the supine position and positioned on the routine table in the clean air suite. The patient was then rolled to a right side up lateral position and held with a Biomet hip positioner. The hip and leg was scrubbed with alcohol followed by Hibiclens followed by chloro prep and draped sterilely. A timeout was done and antibiotics were initially held. Once a culture had been obtained, 1 g of vancomycin and 2 g of Ancef were immediately given. The previous incision was excised. The iliotibial band was opened in line with the incision. There was fluid in the hip joint which had a benign appearance to it. A swab culture was taken. 2 separate tissue cultures were obtained. A frozen section was sent down. The frozen section returned showing no evidence of acute inflammation. The Charnley retractor was positioned. The plastic acetabular component was in a displaced position and was removed without incident. It was inspected. There was some markings on the shell side but there was no evidence of cracks fatigue or failure to visible inspection. The hip was dislocated posteriorly. The head was removed and inspected. Several scratches were seen on the femoral head. The acetabulum was inspected. There was minimal markings on the acetabulum which had almost a completely benign appearance to it. We checked carefully both the femoral component and the acetabular component and could not find any evidence of loosening or vince- component cystic changes. The stem was not loose. This was checked and found to be in approximately 15 of anteversion. The acetabular component was approximately 40-45 of abduction and 20-25 of forward flexion. It appeared stable. We trialed this with a dual geometry trial using a +4 offset. The patient previously had a -3 offset. There is concerns of leg length. By trialing this with a -3 initially, we found that it was stable to approximately 60 of internal rotation. By increasing this to a +4, this was stable to almost 85 of internal rotation. It was very difficult to dislocate. This was felt to be a very stable configuration. On the back table the ceramic 28+4 head was inserted into the dual geometry component per roller leveler operator's recommendation and as per the instruction of the warehouse production worker. The hip was reassembled. This was impacted and found to be secure. The hip was relocated and had the same stability as previously noted. The wound was irrigated copiously with multiple liters of antibiotic irrigation. Hemostasis was controlled. Exparel and saline were mixed and injected into the capsule and subcutaneous tissue. Posteriorly the deep fascia was approximated with interrupted #2 Tycron sutures and a pull-through mattress fashion. The piriformis was repaired with the same. The hip was dry. The fascia was closed with interrupted #1 Vicryl suture, subcutaneous tissue 2-0 Vicryl suture and skin with running intradermal 3-0 Vicryl followed by benzoin Steri-Strips and a sterile dressing. The sponge count and needle counts and his counts were all correct patient tolerated procedure well taken to recovery room in satisfactory condition. FINDINGS: There was a dissociated polyethylene component from the femoral head. The final solution appeared to be very satisfactory. There was no complication that was appreciated
[2018-06-26] MEDS ORDERED: *Meperidine Inj 25 MG/ML Vial PERIprocedural Use ONLY ONE (15:12)
[2018-06-26] MEDS ORDERED: fentaNYL Citrate Inj 100 MCG/2 ML Ampul ONE (15:12)
[2018-06-26] MEDS ORDERED: HYDROmorphone PCA Inj 6 MG/30 ML PCA.VIAL PCA ONE (15:13)
[2018-06-26] MEDS ORDERED: *morphine SULFATE 10 MG/ML PERIprocedure ONLY ONE ×2 (15:17→15:28)
[2018-06-26] MEDS: HYDROmorphone PCA Inj 6 MG/30 ML PCA.VIAL PCA PRN ×3 (15:27→19:22)
--- NOTE | 2018-06-26 15:59 | XR ---
EXAM DATE: 06/26/2018 2:40 PM EDT AGE/SEX: 57 years / Male INDICATIONS: Status post right hip surgery CLINICAL DATA: This is the patient's initial encounter. Patient reports that signs and symptoms have been present for 1 day and indicates a pain score of 10/10. MEDICAL/SURGICAL HISTORY: . right hip fracture . right hip replaced COMPARISON: [facility] [place], HIP LAT ONLY RIGHT W AP PELVIS, 05/29/2018. . FINDINGS: Postoperative right total hip replacement. Previous fixation left hip. Normal alignment of right hip prosthesis. Air in soft tissues. CONCLUSION: Postoperative right total hip replacement. No complications identified. Electronically signed by: Sukh Lunsford MD 06/26/2018 3:58 PM EDT
--- NOTE | 2018-06-26 18:18 | ECG ---
Date Performed: 06/26/2018 Time Performed: 07:47:41 PTAGE: 57 years EKG: Sinus rhythm POSSIBLE RIGHT VENTRICULAR CONDUCTION DELAY Since the previous tracing, no significant change noted BORDERLINE ECG PREVIOUS TRACING : 07/26/2010 10.51 DOCTOR: Mike Levine Interpretating Date/Time 06/26/2018 18:17:04
[2018-06-26] MEDS: Multivitamin/Minerals Therapeutic Tablet PO SCH (20:36)
[2018-06-26] MEDS: Finasteride 5 MG Tablet PO SCH (20:37)
[2018-06-26] MEDS: Zolpidem Tartrate 5 MG Tablet PO PRN (20:49)
[2018-06-27] MEDS: HYDROmorphone PCA Inj 6 MG/30 ML PCA.VIAL PCA PRN ×3 (02:47→19:12)
[2018-06-27] MEDS: Gabapentin 400 MG Capsule PO SCH ×2 (06:00→12:59)
[2018-06-27] MEDS: oxyCODONE HCL 40 MG Controlled Release Tablet PO SCH ×2 (06:00→13:00)
[2018-06-27] MEDS: Baclofen 10 MG Tablet PO SCH ×2 (06:00→13:00)
[2018-06-27 07:13] LABS: Hematocrit 27.9 % (39.0-51.0); Hemoglobin 9.2 gm/dL (13.0-17.0)
[2018-06-27] MEDS: ALPRAZolam 0.5 MG Tablet PO PRN (07:22)
[2018-06-27] MEDS: Multivitamin/Minerals Therapeutic Tablet PO SCH (09:07)
[2018-06-27] MEDS: Senna/Docusate Sodium 8.6/50 MG Tablet PO SCH (09:07)
--- NOTE | 2018-06-27 13:00 | P.DCO ---
- Physical Therapy Physical Therapy: Safety evaluation, Other Hip: Total hip, Protocol: Right, Posterior hip precautions, Progress to weight bearing Additional instructions: PT 4x/week for 2 weeks. WBAT Right LE. Patient must wear his axial abduction brace fulltime, including in bed at night. He can remove this for showering and hygiene only. Walker / cane as needed. Strong posterior precautions. - Nursing RN days per week: 3 x week(s): 1 Dressing changes: Do not change dressing Additional instructions: Vitals assessment. Dressing assessment - do not change unless saturated. - Certification Need for Home Health services: I have seen patient Lawrence Georges on 06/27/18. My clinical findings support the need for the requested home health care services because: Need for Home Health Services: Deconditioned with increased weakness, High risk of falls Homebound Certification: I certify that my clinical findings support that this patient is homebound because: Homebound Certification: Post-op weakness, Unsteady gait/balance
--- NOTE | 2018-06-27 13:06 | P.PNOP ---
Subjective Interval history: Pain moderately controlled. He was just fit with his axial abduction brace. He 'is not excited about sleeping in it'. No new leg pain. No CP or SOB. Physical Exam Vital signs: Vital Signs 06/26/18 15:00 06/26/18 15:15 06/26/18 15:30 Temperature 97.4 F L Pulse Rate 66 81 88 Respiratory Rate 25 H 19 23 Blood Pressure 174/77 H 145/84 H 144/87 H Pulse Oximetry 100 90 L 100 06/26/18 15:45 06/26/18 16:00 06/26/18 16:15 Temperature 96.0 F L 97.5 F L Pulse Rate 93 H 70 80 Respiratory Rate 12 14 24 Blood Pressure 152/110 H 142/80 H 134/63 Pulse Oximetry 97 95 95 06/26/18 16:26 06/26/18 18:40 06/26/18 18:44 Temperature Pulse Rate 84 Respiratory Rate 20 18 18 Blood Pressure 137/67 Pulse Oximetry 95 06/26/18 19:57 06/26/18 20:00 06/26/18 22:05 Temperature 98.3 F Pulse Rate 90 Respiratory Rate 18 20 18 Blood Pressure 142/85 H Pulse Oximetry 97 06/26/18 22:50 06/26/18 23:52 06/27/18 00:00 Temperature 98.8 F Pulse Rate 100 H Respiratory Rate 16 17 20 Blood Pressure 123/62 Pulse Oximetry 97 06/27/18 04:00 06/27/18 07:17 06/27/18 07:51 Temperature 98.4 F Pulse Rate 90 Respiratory Rate 20 18 18 Blood Pressure 137/66 Pulse Oximetry 95 06/27/18 08:00 06/27/18 09:37 06/27/18 11:51 Temperature 98.2 F Pulse Rate 81 Respiratory Rate 14 18 18 Blood Pressure 124/58 L Pulse Oximetry 95 Intake & Output 06/26/18 06/27/18 06/27/18 18:59 06:59 18:59 Intake Total 2000 / 2000 1800 / 1800 100 / 100 Output Total 300 / 300 1300 / 1300 Balance 1700 / 1700 500 / 500 100 / 100 Weight 65.7 kg Intake: IV 1200 / 1200 100 / 100 LR 1000 mL Inj 1,000 ML @ 80 1000 / 1000 mls/hr IV.CONT .[id number] [facility] Rx# :[id number] Ancef Inj 1,000 MG In NS Inj 200 / 200 100 / 100 100 ML @ 200 mls/hr IV.SIG Q6H [facility] Rx#:[id number] Oral 600 / 600 Anesthesia Amount 1999 Output: Urine 1300 / 1300 Estimated Blood Loss 300 / 300 Other: Date of Last Bowel Movement 06/23/18 06/23/18 06/21/18 Narrative: Laying in bed NAD With family member RLE Abduction brace in place, posterior hip dressing intact, no drainage, mild swelling, no erythema +motor at distal, +sens, +nvi Neg homans distal - Constitutional no acute distress Results - Labs CBC & Chem 7: 06/27/18 06:42 Laboratory Results - last 24 hr 06/27/18 06:42 Hgb 9.2 L Hct 27.9 L Microbiology 06/26/18 13:30 Tissue - Hip Fungal Smear - Final No fungal elements seen 06/26/18 13:30 Tissue - Hip Fungal Smear - Final No fungal elements seen 06/26/18 13:30 Wound - Hip Fungal Smear - Final No fungal elements seen 06/26/18 13:30 Tissue - Hip Gram Stain - Final 06/26/18 13:30 Tissue - Hip Gram Stain - Final 06/26/18 13:30 Wound - Hip Gram Stain - Final - Imaging Impressions Hip X-Ray 06/26/18 14:40 CONCLUSION: Postoperative right total hip replacement. No complications identified. - Procedures Revisional right alexis, posterior Assessment and Plan - Ortho Post Op Day # 1 - Problem List (1) Metallosis Code(s): T56.91XA - Toxic effect of unspecified metal, accidental (unintentional ), initial encounter Status: Acute - Assessment and Plan Status post revision right total hip replacement. Status post dislocation right total hip replacement. Dislodgment right acetabular dual geometry liner. pod#1 s/p Revisional Right ALEXIS, posterior Pain moderately controlled. He was on several narcotics prior to surgery He was just fit with the abduction pillow. I want him to practice with this today before discharge. He prefers to go home. If he does well today he can discharge tonight/tomorrow am. Hold dressing changes unless saturated. PT - WBAT RLE. Posterior precautions. Axial/abduction brace time study observer. He mist sleep in this. ASA 81mg bid. D/C planning HHC today or tomorrow. Continue with hematology. Follow outpatient with Dr. Wooten's group.
[2018-06-27 13:22] VITALS: O2SAT 96
[2018-06-27] MEDS ORDERED: Enoxaparin Inj 30 MG/0.3 ML Syringe SQ SCH (14:00)
[2018-06-27 16:43] VITALS: BP 118/58; PULSE 83; TEMP 98.6
[2018-06-27 18:53] VITALS: RESP 18
--- NOTE | 2018-07-12 17:34 | P.DS ---
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 He did well for several years. He began having increased pain so studies were performed including xray, CT scan and cobalt/chromium tests. 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 He underwent revisional surgery 4 weeks ago and discharged home successfully. While at home he was sitting on his couch with legs flexed, and leaned and rotated hard to his left. He immediately felt severe right buttock pain. He presented to [facility] where xrays showed a posterior dislocation. Reduction was attempted but malreduction was achieved. He was transferred to [facility] for further care and definitive surgical treatment. 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 Pain was controlled and activities were limited until the proper hardware could be shipped and received by the facility for definitive treatment. Surgical treatment was performed 06/26 in the form of revisional right total hip arthroplasty. The patient recovered well and was transferred from PACU to the orthopaedic floor. Pain was controlled with IV and oral medications. He was fit with an abduction brace limited to 70 degrees flexion, 0 extension and 10 abduction. After 1 day he was found to be stable and discharged home with home health care. He was firmly instructed to continue his abduction brace manager [employer], including when in bed, to ice the operative limb and to pursue a high fiber diet for 3-5 days. He was given a prescription of lovenox and encouraged to return to his preoperative narcotic pain medications. - Time Spent with Patient Total time spent providing and/or coordinating discharge services: Greater than 30 minutes - Quality: VTE Deep Vein Thrombosis/Pulmonary Embolism Present on Admission: No Exam Narrative: Laying in bed NAD With family member RLE Abduction brace in place, posterior hip dressing intact, no drainage, mild swelling, no erythema +motor at distal, +sens, +nvi Neg homans distal - Constitutional no acute distress Results Procedures completed during hospitalization: Revisional right total hip arthroplasty, posterior approach Labs on day of discharge: Preliminary micro results at discharge 06/26/18 13:30 Fungal Culture - Preliminary Tissue - Hip No growth in 2 weeks 06/26/18 13:30 Mycobacterial Culture - Preliminary Tissue - Hip No growth in 2 weeks 06/26/18 13:30 Fungal Culture - Preliminary Tissue - Hip No growth in 2 weeks 06/26/18 13:30 Mycobacterial Culture - Preliminary Tissue - Hip No growth in 2 weeks 06/26/18 13:30 Fungal Culture - Preliminary Wound - Hip No growth in 2 weeks 06/26/18 13:30 Mycobacterial Culture - Preliminary Wound - Hip No growth in 2 weeks - Impressions ITS Impressions Hip X-Ray 06/26/18 14:40 CONCLUSION: Postoperative right total hip replacement. No complications identified. Discharge Plan - Discharge Disposition Patient Disposition: /Home Health Service - Discharge Condition Condition: Good - Discharge Order Discharge Orders: Discharge Order (Routine); Ordered 06/27/18 Ordered By: Jethro Kam - Physicians Team Primary Care Provider: Juan Carlos Day Attending Provider: Jethro Kam Other Providers: [facility] ; Deepak Morrell MD - Rxs /Orders / Referrals /Forms Prescriptions: New enoxaparin [Lovenox] 30 mg/0.3 mL Syringe 30 mg subcut Q24H Qty: 60 RF: 0 Continue alprazolam 0.5 mg Tablet 0.5 mg PO BID PRN (Reason: Anxiety) amitriptyline 50 mg Tablet 50 mg PO HS aspirin 81 mg Tablet,Chewable 81 mg PO BID Qty: 60 RF: 0 baclofen 10 mg Tablet 10 mg PO TID finasteride tablet 5 mg PO HS gabapentin 800 mg Tablet 800 mg PO TID oxycodone 15 mg Tablet 15 mg PO Q4-6H PRN (Reason: Pain) oxycodone [OxyContin] 80 mg Tablet,Oral Only,Ext.Rel.12 Hr 80 mg PO TID promethazine 25 mg Tablet 25 mg PO Q6H PRN (Reason: Nausea) tamsulosin 0.4 mg Capsule,Extended Release 24hr 0.8 mg PO HS temazepam tablet 15 mg PO HS Referrals: Juan Carlos Day MD [Primary Care Provider] - See Instructions - Discharge Instructions Patient Printed Instructions: Enoxaparin (By injection), Fall Prevention (DC), Total Hip Replacement (DC), Deep Vein Thrombosis Prevention (DC) Additional Instructions: TAKE MEDS PRESCRIBED FOLLOWUP WITH DR SCHEDULED IN CASE OF EMERGENCY CALL 911 OR RETURN TO EMERGENCY ROOM - Post Discharge Care Plan Care Plan Goals: Discharge Care Plan Goals for Revisional right Total Hip Replacement ( posterior) You had a hip replacement surgery. This means your natural hip was replaced with an artificial joint (prosthesis). You may be recovering at home or in a rehabilitation facility. Either way, you must take care of your new hip. Here are some goals to help you heal well. Directions to Meet your Goals: 1. Activity & Exercises: * Take pain medicine as directed by your doctor. * Dont drive until your doctor says its OK. And never drive while taking opioid pain medicine. * Wear the support stockings you were given in the hospital as directed by your surgeon. * Dont sit for more than 30 to 45 minutes at one time. * Dont lean forward while sitting. * Dont cross your legs. * Keep your feet flat on the floor. Dont turn your foot or leg inward. This stresses your hip joint. * Use an elevated toilet seat for 6 weeks after surgery. * Nap if you are tired, but dont stay in bed all day. * Sit on a firm cushion when you ride in a car and avoid sitting too low. Try not to bend your hip too much when getting in and out of the car. 2. Prevent Falls/Injury: * Follow your doctors orders regarding how much weight to put on the affected leg. * Dont bend at the hip when you bend over. Don't bend at the waist to put on socks and shoes. And avoid picking up items from the floor. * Use a cane, crutches, a walker, or handrails until your balance, flexibility, and strength improve. And remember to ask for help from others when you need it. * Free up your hands so that you can use them to keep balance. Use a ivan pack , apron, or pockets to carry things. * Arrange your household to keep the items you need handy. Keep everything else out of the way. * Remove items that may cause you to fall, such as throw rugs and electrical cords. * Use nonslip bath mats, grab bars, an elevated toilet seat, and a shower chair in your bathroom * Sit on a shower stool or chair when you shower to keep from falling. *Wear your abduction axial brace manager maritime. You must sleep in this device. You can remove it for showering only. 3. Precautions: * Prevent infection. Any infection will need to be treated immediately. Call your doctor right away if you think you might have an infection. * Tell your dentist that you have an artificial joint and take antibiotics as prescribed before any dental work. * Tell all your healthcare providers about your artificial joint before any medical procedure. * Maintain a healthy weight. Get help to lose any extra pounds. Added body weight puts stress on the joints. 4. Incision Care: * Prevent infection by washing your hands often. If an infection occurs, it will need to be treated right away. * Call your doctor right away if you think you may have an infection. Symptoms include a fever or an incision that leaks white, green, or yellow fluid. * Don't soak your incision in water until your doctor says its OK. This means no hot tubs, bathtubs, or swimming pools. * Follow your doctor's instructions for changing the dressing. Do not change the dressing until your first postoperative visit. * Dont rub the incision, or apply creams or lotions to it. * If you notice any redness or drainage around the bandage site, contact your surgeon's office immediately. 5. Follow-Up: Do Not miss your follow-up appointment. Keep up with all your appointments and yearly check ups When to call your doctor: Call your doctor right away if you have: Hip pain gets worse Pain or swelling in your calf or leg not related to your incision Tenderness or redness in your calf Fever of 100.4F (38C) or higher, or as directed by your healthcare provider Shaking chills Swelling or redness at the incision site gets worse Fluid draining from the incision Call 911: Call 911 right away if you have: Chest pain Shortness of breath Any pain or tenderness in your calf
== END 2018-06-27 20:25 | disposition home health service (06) ==
LOC: N06 16:10
PROVIDERS: ADMIT Orthopaedic Surgery Orthopaedic Surgery of the Spine; ATTEND Orthopaedic Surgery Orthopaedic Surgery of the Spine